=== PATIENT | female | born 1990 | race Caucasian/White ===

== ENCOUNTER → 2016-12-24 | Outpatient (CLI) | payer OTHER ==
--- NOTE | 2016-12-24 13:50 | MAMMOGRAPHY REPORT ---
ULTRASOUND OF RIGHT BREAST: 12/24/2016 CLINICAL HISTORY: 26-year-old woman presents after her provider felt a lump in the 1:00 right breast. No skin changes or nipple discharge. No family history of breast cancer. COMPARISON: No prior exams were available for comparison. FINDINGS: Real-time high-resolution ultrasound was performed in the area of palpable lump pointed out by the patient (1:00 periareolar right breast). In the area of palpable lump, there is a parallel h ypoechoic solid lobulated and circumscribed mass measuring 13.6 x 9.0 x 17.6 mm. Although this most likely represents a fibroadenoma, definitive characterization with an ultrasound guided core biopsy i s recommended to exclude the possibility of phyllodes. IMPRESSION: ACR BI-RADS CATEGORY 4A: LOW SUSPICION FOR MALIGNANCY - FOLLOW-UP RECOMMENDED The palpable lump in the 1:00 periareolar right breast correlates with a benign-appearing solid mass measuring 17.6 mm. Definitive characterization with an ultrasound-guided core needle biopsy is recom mended. These results and recommendations were discussed with the patient at the time of the exam. She tenta tively scheduled the biopsy prior to leaving our department. Princess Bal M.D. ay/:12/24/2016 08:23:59 Bicycle Mechanic: Dr. Princess Bal, [facility] letter sent: Abnormal 4/5 BI-RADS Code: ACR BI-RADS Category 4A: Low Suspicion For Malignancy
== END | disposition home or self-care (01) ==
LOC: C.MAMM 08:03
PROVIDERS: ATTEND Physician Assistant Medical
DX: N63 Unspecified lump in breast (principal)

== ENCOUNTER → 2016-12-25 | Outpatient (CLI) | payer OTHER ==
--- NOTE | 2016-12-25 09:02 | Discharge Instructions ---
Discharge Instructions Procedure Procedure Date: Dec 25, 2016. Reason for visit: Right Mass. Discharge Discharge Date: Dec 25, 2016. Discharge Diagnosis: status post breast biopsy Instructions Activity Recommendations: Additional Limitations (see below) Return to School/Work: no limitations Recommended Home Diet: No Limitations Provider Instructions: ACTIVITY RECOMMENDATIONS: * No lifting, pushing, pulling or exercising the affected side for three days. RETURN TO SCHOOL/WORK: * You may return to work/school after the procedure, but do not perform any strenuous activities for 24 to 48 hours. MEDICATIONS: * Tylenol (two 325 mg) every four to six hours if needed for mild pain (if not allergic to Tylenol). DIET: * Resume previous diet. SPECIAL CARE INSTRUCTIONS: * Keep biopsy site dry for 24 hours. May shower after 24 hours, but do not soak (bathe) incision. * May remove Tegaderm (plastic patch) tomorrow AFTER showering. * Leave the steri-strips on for one week. Allow the steri-strips to fall off by themselves. If not off after one week, you may remove them. You may place a Bandaid crosswise over the strips, if desired. * Apply ice 10 minutes on and 10 minutes off as needed. * Wear a bra at bedtime to sleep more comfortably for 2-3 days. * Your referring physician should have the results after approximately 5 to 7 business days. * Call for unusual bleeding, fever, drainage, etc or if you have any questions call during normal business hours or after hours call Dr Moran, . FOLLOW UP VISIT: Follow-up with Referring Physician as scheduled. Allergies Coded Allergies: Penicillins (Verified Allergy, Unknown, UNKNOWN, 02/06/16) Mikhail Varghese Recommendations: Call your doctor if: * Temperature above 101 degrees * Pain not relieved by pain medicine ordered * There is increased drainage or redness from any incision * You have any unanswered questions or concerns. Your Doctors Instructions noted above were prepared by provider Jane Moran. Patient Signature Section: Patient Instructions Signature Page Sue Belén Patient (or Guardian) Signature/Date: I have read and understand the instructions given to me by my caregivers. Caregiver/RN/Doctor Signature/Date: The above-named patient and/or guardian has received patient instructions on this date. + Original Patient Signature Page (only) stays with chart. Please make copy for patient.
--- NOTE | 2016-12-25 12:44 | MAMMOGRAPHY REPORT ---
ULTRASOUND GUIDED BIOPSY RIGHT BREAST: 12/25/2016 CLINICAL HISTORY: Right 1:00 breast mass. PATIENT CONSENT: The procedure, risks and benefits were discussed with the patient and informed writt en consent was obtained. A timeout was performed immediately prior to the procedure. PROCEDURE DESCRIPTION: With ultrasound guidance, aseptic technique, and lidocaine as the local anesth etic (1% lidocaine to anesthetize the skin and 1% lidocaine with epinephrine to anesthetize the deepe r tissues), the mass of concern in the right 1:00 breast was sampled 4 times with a 14-gauge Achieve biopsy needle. Immediately thereafter, with ultrasound guidance, aseptic technique, and lidocaine as the local anesthetic, a metallic localizer clip was placed in the mass. Direct pressure was applied to the site immediately post procedure and hemostasis was achieved. The patient tolerated the procedu re without complication. She was given wound care instructions. The specimens were sent to pathology for analysis. COMPARISON: Comparison is made to exam dated: 12/24/2016 ultrasound - [facility]. IMPRESSION: ULTRASOUND GUIDED BIOPSY Ultrasound guided core needle biopsy of the right 1:00 breast mass, with clip placement. The patient will receive pathology results from her referring provider. Jane Moran M.D. /:12/25/2016 09:03:42 Clinical Account Executive: Marilyn Rothman, [facility]
== END | disposition home or self-care (01) ==
LOC: C.MAMM 08:20
PROVIDERS: ATTEND Physician Assistant Medical
DX: N63 Unspecified lump in breast (principal); D24.1 Benign neoplasm of right breast

== ENCOUNTER → 2017-07-24 | Outpatient (CLI) | payer OTHER ==
--- NOTE | 2017-07-24 15:39 | MAMMOGRAPHY REPORT ---
ULTRASOUND OF RIGHT BREAST: 07/24/2017 CLINICAL HISTORY: The patient reports intermittent diffuse right breast pain for a few weeks, which i s now improving. History of biopsy of a right 1:00 breast mass in December 2016 which yielded a shanthi ign fibroadenoma. She denies any new palpable lumps or other complaints. COMPARISON: Comparison is made to exams dated: 12/25/2016 ultrasound biopsy and 12/24/2016 ultrasound - [facility]. TECHNIQUE: Real-time ultrasound of the right breast was performed. FINDINGS: Real-time, high-resolution ultrasound was performed of the right breast including all [address] and subareolar regions to evaluate diffuse right breast pain. In the right breast at 1:00, 1 cm from the nipple, again noted is a circumscribed hypoechoic solid mass which measures 15 x 10 x 16 mm. The mass is not significantly changed compared to the prior exam and was previous the biopsied a nd yielded a fibroadenoma. In the right breast at 7:00, 3 cm from the nipple, there is another simil ar-appearing hypoechoic solid circumscribed mass which measures 7 x 6 x 8 mm. This is probably benig n and likely represents another fibroadenoma. The remainder of the right breast demonstrates no susp icious masses or other suspicious sonographic abnormalities. IMPRESSION: ACR-BI-RADS CATEGORY 3: PROBABLY BENIGN - FOLLOW-UP RECOMMENDED 1. No suspicious sonographic abnormality to explain diffuse intermittent right breast pain. Recommen d clinical follow-up. 2. Stable 16 mm hypoechoic mass in the right 1:00 breast, which was previously biopsied and yielded a benign fibroadenoma. Another similar-appearing smaller hypoechoic 8 mm mass is seen within the rig ht breast at 7:00, which is probably benign and likely also represents a fibroadenoma. Recommend fol low-up targeted ultrasound of the right breast in 6 months to confirm stability of the 7:00 breast ma ss. The patient was verbally notified of the results. She reports that she may be moving to [place] in Jan and I informed her that she could have the follow-up ultrasound in [place]. Jane Moran M.D. /:07/24/2017 09:53:37 [employer] Direction Specialist: Randee LARA(Jim)(Pawan), [facility] letter sent: Follow Up Recommended 3 BI-RADS Code: ACR-BI-RADS Category 3: Probably Benign
== END | disposition home or self-care (01) ==
LOC: C.MAMM 09:05
PROVIDERS: ATTEND Physician Assistant Medical
DX: N64.4 Mastodynia (principal); D24.1 Benign neoplasm of right breast; N63.10 Unspecified lump in the right breast, unspecified quadrant

== ENCOUNTER 2019-01-22 02:20 | Inpatient (IN) ==
[2019-01-22] MEDS ORDERED: OXYTOCIN 30 UNITS/500 ML BAG IV PRN ×3 (05:44→15:32)
--- NOTE | 2019-01-22 05:47 | History & Physical Report ---
Date of Service January 22, 2019 Assessment & Plan (1) : Patient has made cervical change since exam 2 days ago, has regular contractions. She would like epidural. She is agreeable to pitocin if this is indicated. History of Present Illness Chief Complaint: labor Primary Care Provider: NO PCP Patient is a 28-year-old G1, P0 at 39 weeks 0 days who presented with contractions. She states the contractions have been going on since yesterday, and have been getting close together and stronger. No leaking of fluid, no vaginal bleeding. Positive movement. complicated by fibroadenoma of the breast. My last exam in the office on 01/20/2019 was 1/80/-2. Allergies Allergy/AdvReac Type Severity Reaction Status Date / Time Iodinated Contrast Media Allergy Intermediate Rash Verified 01/22/19 04:39 Penicillins Allergy Unknown UNKNOWN Verified 01/20/19 13:32 Home Medications Home Medications Medication Instructions Recorded Confirmed Type OBI-hsjw-GE-omega 3-fat com #1 27 1 cap PO DAILY cap 11/15/18 01/22/19 History mg-1 mg-300 mg capsule Patient History Medical History Fibroadenoma of both breasts History of varicella Surgical History H/O parotidectomy Family History Grandmother (Paternal) Cardiac disorder Hypertension Hypercholesterolemia Grandfather (Paternal) Diabetes Father Hypertension Other FH: deafness or hearing loss Social History Preferred Language: Czech Communication Ability: Effective Planning Engineer Required: No Beliefs That Will Affect Care: None marital status: Current Living Situation: Spouse Other Information That Helps Us Care for You: No Feels Safe at Home: Yes Safety Concerns: Feels Safe At This Time Smoking Status: Never smoker Hx Alcohol Use: No Hx Substance Use: No Review of Systems All systems reviewed & are unremarkable except as noted in HPI & below Physical Exam Constitutional: WD/WN, vitals as above Respiratory: normal respiratory effort, lungs clear to auscultation no respiratory distress Cardiovascular: Rate/Rhythm: regular rate and regular rhythm Gastrointestinal (Abdomen): Inspection/Auscultation: abdomen normal to inspection Percussion/Palpation: abdomen soft; abdomen nontender Gravid. No s/s chorio or abruption. Skin: no rashes, warm and dry Psychiatric: A+Ox3, euthymic affect Results & Data Vital Signs (Past 12 Hours) Vital Signs Temp Pulse Resp BP 01/22/19 02:43 36.8 C 18 01/22/19 02:31 70 108/61
[2019-01-22] MEDS: LACTATED RINGER'S 1,000 ML IV PRN ×2 (06:00→06:57)
[2019-01-22 06:05] LABS: Hemoglobin 12.4 g/dL (12.0-16.0); Mean Corpuscular Hemoglobin 33.8 pg (25-34); Mean Corpuscular Volume 98.1 fL (80-100); Mean Platelet Volume 11.7 fL (7.4-10.4); Platelet Count 157 K/uL (130-400); RDW Coefficient of Variation 13.1 % (11.5-14.5); RDW Standard Deviation 46.5 fL (36.4-46.3); Red Blood Count 3.67 M/uL (4.2-5.4); White Blood Count 12.85 K/uL (4.8-10.8)
[2019-01-22] MEDS ORDERED: BUPIVACAINE 0.25% 30 ML VIAL ONE (06:15)
[2019-01-22] MEDS ORDERED: fentaNYL citrate 100 MCG/2 ML VIAL ONE (06:15)
[2019-01-22] MEDS ORDERED: ePHEDrine sulfate 50 MG/ML AMP ONE (06:15)
[2019-01-22] MEDS ORDERED: fentaNYL 2MCG/ML ROPIV 1.25MG/ML 100 ML BAG EPI ONE (06:16)
[2019-01-22 06:18] LABS: Mean Corpuscular Hgb Conc 34.4 g/dL (32-36)
--- NOTE | 2019-01-22 07:37 | Anesthesiology Consultation ---
Date of Service January 22, 2019 Assessment & Plan (1) Encounter for pre-operative examination: Chart Review Chart Review: Patient NOT seen in Pre Admission Testing and Acceptable Risk for Labor Epidural Consults Requested none ASA ASA2 Proposed Anesthesia Anesthesia Type: Labor Epidural Risk / Benefits Reviewed With: PT / POA / Parent / Guardian, Accepts Plan and Informed Consent Obtained History Height/Weight Height: 5 ft 7.72 in Weight: 58.967 kg Allergies Allergy/AdvReac Type Severity Reaction Status Date / Time Iodinated Contrast Media Allergy Intermediate Rash Verified 01/22/19 04:39 Medications Home Medications Medication Instructions Recorded Confirmed Last Taken ZDV-uirx-MX-omega 3-fat com #1 27 1 cap PO DAILY cap 11/15/18 01/22/19 01/21/19 14:00 mg-1 mg-300 mg capsule Active Medications Generic Name Dose Route Start Last Admin Trade Name Freq PRN Reason Stop Dose Admin Lactated Ringer's 1,000 mls @ 125 mls/hr 01/22/19 05:44 01/22/19 06:57 Lr IV 01/24/19 05:43 125 mls/hr .Q8H PRN Administration L&D Protocol Protocol NPO Date Last Intake of Fluids: 01/22/19 Time Last Intake of Fluids: 07:41 Date Last Intake of Solids: 01/22/19 Time Last Intake of Solids: 05:30 Past Medical History Medical History Fibroadenoma of both breasts History of varicella Exercise / Class Metabolic Activity II 4-5 Yardwork/Stairs/Walk up hill Negative for chest pain or shortness of breath. Past Family History Family History Grandmother (Paternal) Cardiac disorder Hypertension Hypercholesterolemia Grandfather (Paternal) Diabetes Father Hypertension Other FH: deafness or hearing loss Past Surgical History Surgical History H/O parotidectomy Past Anesthesia History No Hx of Anesthesia Complications History of PONV No Hx of PONV and No Hx of Motion Sickness Social History Smoking Status: Never smoker Hx Alcohol Use: No Hx Substance Use: No Review of Systems Patient denies active symptoms of GERD. Patient denies numbness, tingling or weakness in lower extremities. Patient denies history of abnormal bleeding or bleeding disorder. Patient denies active use of anticoagulants other than low dose aspirin. Physical Exam Vital Signs Last Vital Signs Temp 36.8 C 01/22/19 02:43 Pulse 70 01/22/19 02:31 Resp 18 01/22/19 02:43 BP 108/61 01/22/19 02:31 Constitutional not obese (Gravid uterus) ENMT Mouth: no TMJ abnormality and oral opening not small Thyromental Distance: > or= 3.5 Finger Breadths Mallampati Class: III Neck normal visual inspection; neck extension not limited Respiratory normal respiratory effort Auscultation: lungs clear to auscultation bilaterally Cardiovascular Rate/Rhythm: regular rate and regular rhythm Heart Sounds: no murmur Neurologic moves all extremities Motor/Sensory: no sensory deficit Psychiatric Orientation: alert and oriented x 3 Testing Laboratory Results 01/22/19 05:51
[2019-01-22] MEDS ORDERED: NALOXONE HCL 0.4 MG/1 ML VIAL/CARP IV PRN (07:51)
[2019-01-22] MEDS ORDERED: DiphenhydrAMINE HCL 50 MG/ML VIAL IV PRN (07:51)
[2019-01-22] MEDS ORDERED: fentaNYL 2MCG/ML ROPIV 1.25MG/ML 100 ML BAG EPI PRN (07:51)
[2019-01-22] MEDS ORDERED: NALBUPHINE HCL INJ 10 MG/ML AMP IV PRN (07:51)
[2019-01-22] MEDS ORDERED: ONDANSETRON INJ 2 MG/ML 2 ML VIAL IV PRN (07:51)
[2019-01-22] MEDS ORDERED: ePHEDrine sulfate 50 MG/ML AMP IV PRN (07:51)
[2019-01-22] MEDS ORDERED: NALOXONE HCL 1 MG in SODIUM CHLORIDE 0.9% 1000ML 1,000 ML IV PRN (07:51)
[2019-01-22] MEDS ORDERED: Nursing to Pharmacy Communication ONE (09:01)
--- NOTE | 2019-01-22 09:03 | Labor Progress Brief Note ---
Date of Service January 22, 2019 Subjective comfortable after epidural Assessment & Plan (1) Normal labor: plan pitocin augmentation. fetus reassuring. Physical Exam Constitutional: WD/WN, vitals as above Psychiatric: A+Ox3, euthymic affect Genitourinary: cx--deferred toco--spaced q6-8min efm--130s with mod variability, accels to 160s, no decels. Results & Data Vital Signs (Past 12 Hours) Vital Signs Temp Pulse Resp BP Pulse Ox 01/22/19 08:55 67 98 01/22/19 08:50 70 98 01/22/19 08:47 65 101/58 L 01/22/19 08:46 20 01/22/19 08:45 67 98 01/22/19 08:40 67 99 01/22/19 08:35 81 97 01/22/19 08:32 64 105/59 L 01/22/19 08:30 68 98 01/22/19 08:25 69 99 01/22/19 08:20 71 99 01/22/19 08:18 71 88/59 L 01/22/19 08:16 20 01/22/19 08:15 75 98 01/22/19 08:10 73 99 01/22/19 08:05 80 99 01/22/19 08:01 81 20 103/62 01/22/19 08:00 78 104/58 L 99 01/22/19 07:58 78 102/55 L 01/22/19 07:55 85 104/59 L 100 01/22/19 07:53 68 106/58 L 01/22/19 07:52 88 105/56 L 01/22/19 07:50 79 104/62 99 01/22/19 07:48 85 109/64 01/22/19 07:46 20 01/22/19 07:45 78 108/64 99 01/22/19 07:43 73 112/66 01/22/19 07:41 72 106/65 01/22/19 07:40 85 99 01/22/19 07:37 36.9 C 80 20 105/59 L 01/22/19 07:35 80 98 01/22/19 07:30 82 20 99 01/22/19 07:27 80 114/63 01/22/19 07:26 87 94 01/22/19 07:25 83 98 01/22/19 07:20 73 100 01/22/19 07:15 83 97 01/22/19 07:10 72 98 01/22/19 07:05 70 100 01/22/19 07:00 80 100 01/22/19 06:55 80 100 01/22/19 06:49 36.8 C 71 18 108/65 01/22/19 02:43 36.8 C 18 01/22/19 02:31 70 108/61
--- NOTE | 2019-01-22 11:55 | Labor Progress Brief Note ---
Date of Service January 22, 2019 Subjective comfortable Assessment & Plan (1) Normal labor: fetus category one. continue current managment. anticipate . Physical Exam Constitutional: WD/WN, vitals as above Psychiatric: A+Ox3, euthymic affect Genitourinary: cx--8/100/0 toco--q3-4min, pit at 6 efm--135 with mod variabiliy, accels to 160s, no decels Results & Data Vital Signs (Past 12 Hours) Vital Signs Temp Pulse Resp BP Pulse Ox 01/22/19 11:50 76 97 01/22/19 11:47 74 93/52 L 01/22/19 11:45 83 97 01/22/19 11:40 74 97 01/22/19 11:35 74 98 01/22/19 11:32 75 99/57 L 01/22/19 11:30 83 98 01/22/19 11:25 84 97 01/22/19 11:20 73 97 01/22/19 11:18 81 110/53 L 01/22/19 11:16 16 01/22/19 11:15 73 96 01/22/19 11:10 68 97 01/22/19 11:05 69 98 01/22/19 11:02 68 106/58 L 01/22/19 11:00 73 97 01/22/19 10:55 80 97 01/22/19 10:50 75 97 01/22/19 10:48 69 114/61 01/22/19 10:46 20 01/22/19 10:45 78 98 01/22/19 10:40 75 97 01/22/19 10:35 72 97 01/22/19 10:32 67 104/60 01/22/19 10:31 20 01/22/19 10:30 73 97 01/22/19 10:25 73 99 01/22/19 10:20 76 98 01/22/19 10:18 67 106/63 01/22/19 10:16 20 01/22/19 10:15 72 99 01/22/19 10:10 73 99 01/22/19 10:05 71 98 01/22/19 10:02 68 104/66 01/22/19 10:01 20 01/22/19 10:00 71 98 01/22/19 09:55 79 98 01/22/19 09:50 71 96 01/22/19 09:47 67 102/57 L 01/22/19 09:46 20 01/22/19 09:45 66 98 01/22/19 09:40 66 98 01/22/19 09:35 69 99 01/22/19 09:32 70 101/56 L 01/22/19 09:31 20 01/22/19 09:30 69 99 01/22/19 09:25 71 99 01/22/19 09:20 64 98 01/22/19 09:19 66 100/57 L 01/22/19 09:16 20 01/22/19 09:15 67 99 01/22/19 09:10 67 100 01/22/19 09:05 76 99 01/22/19 09:02 65 100/57 L 01/22/19 09:01 36.9 C 20 01/22/19 09:00 71 99 01/22/19 08:55 67 98 01/22/19 08:50 70 98 01/22/19 08:47 65 101/58 L 01/22/19 08:46 20 01/22/19 08:45 67 98 01/22/19 08:40 67 99 01/22/19 08:35 81 97 01/22/19 08:32 64 105/59 L 01/22/19 08:30 68 98 01/22/19 08:25 69 99 01/22/19 08:20 71 99 01/22/19 08:18 71 88/59 L 01/22/19 08:16 20 01/22/19 08:15 75 98 01/22/19 08:10 73 99 01/22/19 08:05 80 99 01/22/19 08:01 81 20 103/62 01/22/19 08:00 78 104/58 L 99 01/22/19 07:58 78 102/55 L 01/22/19 07:55 85 104/59 L 100 01/22/19 07:53 68 106/58 L 01/22/19 07:52 88 105/56 L 01/22/19 07:50 79 104/62 99 01/22/19 07:48 85 109/64 01/22/19 07:46 20 01/22/19 07:45 78 108/64 99 01/22/19 07:43 73 112/66 01/22/19 07:41 72 106/65 01/22/19 07:40 85 99 01/22/19 07:37 36.9 C 80 20 105/59 L 01/22/19 07:35 80 98 01/22/19 07:30 82 20 99 01/22/19 07:27 80 114/63 01/22/19 07:26 87 94 01/22/19 07:25 83 98 01/22/19 07:20 73 100 01/22/19 07:15 83 97 01/22/19 07:10 72 98 01/22/19 07:05 70 100 01/22/19 07:00 80 100 01/22/19 06:55 80 100 01/22/19 06:49 36.8 C 71 18 108/65 01/22/19 02:43 36.8 C 18 01/22/19 02:31 70 108/61
[2019-01-22] MEDS ORDERED: OXYCODONE/ACETAMINOPHEN 5mg/325mg TAB PO PRN (15:23)
--- NOTE | 2019-01-22 15:27 | Delivery Summary ---
Vaginal Delivery Summary Date of Service January 22, 2019 Vaginal Delivery Summary Pre-operative Diagnosis: at 39 weeks active labor Post-operative Diagnosis: same Procedure: epidural arom small vaginal laceration with repair EBL: 400cc Anesthesia: epidural Procedure: The patient pushed for about one hour to deliver a viable male in joon position. The nose and mouth were bulb suctioned on the perineum and the rest of the infant was then delivered without difficulty. The baby was vigorous. The nose and mouth were again bulb suctioned and the was placed in the maternal abdomen for drying and attention. Cord was clamped and cut at one minute of life. Cord blood and segment obtained. Placenta delivered spontaneous, intact with a three vessel cord. Cervix/sulci/rectum were intact. A small vaginal laceration was repaired in the normal standard fashion. Hemostasis obtained with dilute pitocin and fundal massage. Apgars were 8/9. Mother and baby doing well at the end of the delivery. [facility] [place] Vaginal Delivery Charge Vaginal Delivery Codes: 05389 global code for the antepartum, delivery, and post-
[2019-01-22] MEDS ORDERED: bisacodyL 10 MG SUPP PR PRN (15:32)
[2019-01-22] MEDS ORDERED: DIPHTHERIA/TETANUS/PERTUSSIS 0.5 ML SYR/VIAL IM ONE (15:32)
[2019-01-22] MEDS ORDERED: HYDROCORTISONE ACETATE 25 MG SUPP PR PRN (15:32)
--- NOTE | 2019-01-22 16:03 | Anesthesia Procedure Note ---
Date of Service January 22, 2019 Anesthesia Post Epidural Note Vital Signs Vital Signs: Temp Pulse Resp BP Pulse Ox 98.6 F 70 20 108/64 97 01/22/19 14:19 01/22/19 15:47 01/22/19 14:19 01/22/19 15:47 01/22/19 14:55 Notes Mental Status: alert / awake / arousable and participated in evaluation Nausea / Vomiting: adequately controlled Pain: adequately controlled Airway Patency, RR, SpO2: stable & adequate BP & HR: stable & adequate Hydration State: stable & adequate Neuraxial Anesthesia: was administered and sensory block is resolving Anesthetic Complications: no major complications apparent and Pt Satisfied with anesthetic care Epidural: Removed without complications and With tip intact
[2019-01-22] MEDS: IBUPROFEN 600 MG TAB PO PRN ×2 (17:55→23:54)
[2019-01-22] MEDS: BENZOCAINE 20% AER SPR 82.5 GM CAN EXT PRN (18:46)
[2019-01-22] MEDS: SUPERCREAM 0.870% 15 GM JAR EXT PRN (18:46)
[2019-01-22] MEDS: DOCUSATE SODIUM 100 MG CAP PO SCH (20:06)
[2019-01-23] MEDS: IBUPROFEN 600 MG TAB PO PRN ×5 (03:36→23:57)
[2019-01-23 06:37] LABS: Hematocrit (blood only) 31.7 % (37-47)
[2019-01-23] MEDS: DOCUSATE SODIUM 100 MG CAP PO SCH ×2 (08:45→20:20)
[2019-01-23] MEDS: PRENATAL VITAMIN 1 TAB PO SCH (08:45)
--- NOTE | 2019-01-23 08:56 | Obstetrical Progress Note ---
Date of Service January 23, 2019 Assessment & Plan (1) Status post vaginal delivery: Doing well. Routine care. Day #:: 1 Subjective Ambulation: ambulating normally Voiding: no voiding problems Passing Gas:: Yes Diet Tolerance:: regular diet Lochia:: Small Feeding Type:: breast feeding c/o her bottom being sore Physical Exam Constitutional WD/WN, vitals as above Gastrointestinal (Abdomen) soft, nd, nd fundus firm, nt at u Psychiatric A+Ox3, euthymic affect Results & Data Vital Signs (Past 12 Hours) Vital Signs Temp Pulse Resp BP Pulse Ox 01/23/19 07:35 36.5 C 70 16 104/67 97 01/23/19 03:05 36.4 C L 73 18 93/54 L 01/22/19 23:35 36.6 C 62 18 101/62
[2019-01-23] MEDS: ACETAMINOPHEN 325 MG TAB PO PRN ×2 (11:42→17:22)
[2019-01-23] MEDS ORDERED: bisacodyL 5 MG TABEC PO SCH (20:00)
[2019-01-24] MEDS: ACETAMINOPHEN 325 MG TAB PO PRN ×2 (03:04→09:06)
[2019-01-24] MEDS: IBUPROFEN 600 MG TAB PO PRN ×3 (05:56→20:32)
[2019-01-24] MEDS: SUPERCREAM 0.870% 15 GM JAR EXT PRN (06:02)
--- NOTE | 2019-01-24 06:03 | Obstetrical Progress Note ---
Date of Service January 24, 2019 Assessment & Plan (1) Status post vaginal delivery: 28 y/o s/p @ 39 weeks w/ small tear -PPD# 2 - GBS negative , Blood Type O+ - Feels well today. Eating well, voiding well, ambulating well. - Pain well controlled. - Routine post care - After discharge will have [address] Manzanares. Supervising Physician Co-Signing Physician Notes Resident Physician Supervision Note: I interviewed and examined the patient. Discussed with Dr. Reno and agree with findings and plan as documented in the note. Any exceptions or clarifications are listed here: Doing well. Desires d/c. Instructions given. Documented By: Dahlia Manzanares MD, FACOG Subjective Doing well this morning, she wanted to know if she had a tear in her abdomen and how long until her abdomen would return to its normal size. She had no other concerns this morning. Review of Systems Review of Systems: Denies fever, chills, sweats Denies shortness of breath, difficulty breathing, chest pain, palpitations, chest pressure. Denies breast pain. Denies dysuria. Denies headache. Physical Exam Physical Exam: OB PE General: Alert, oriented. No acute distress. Cardiac: Regular rate and rhythm, no murmurs/rubs/gallops. Respiratory: Clear to auscultation anterior and posteriorly, no wheezes/rales/rhonchi. No increased work of breathing. Symmetrical chest rise. No respiratory distress. Abdomen: Soft, nontender, nondistended. Bowel sounds present. Uterus: Uterine fundus firm, palpable at the umbilicus. Lower Extremities: No lower extremity edema or swelling. No deep calf pain. Carin's negative bilaterally. Results & Data Vital Signs (Past 12 Hours) Vital Signs Temp Pulse Resp BP Pulse Ox 01/24/19 00:05 36.6 C 67 16 106/68 98 01/23/19 20:10 36.6 C 80 16 96/59 L 98 PG Care Time/CCT Total # of Minutes Spent Total Time Spent with Patient: Total time spent is greater than 50% in coordination of care (as documented) at patient's floor/unit and/or counseling patient: Resident Activity Tracking Resident Involvement: Resident Care Provided Care Provided: Adult [facility]
[2019-01-24] MEDS: DOCUSATE SODIUM 100 MG CAP PO SCH ×2 (09:06→20:33)
[2019-01-24] MEDS: PRENATAL VITAMIN 1 TAB PO SCH (09:07)
[2019-01-24] MEDS: BENZOCAINE 20% AER SPR 82.5 GM CAN EXT PRN (22:32)
== END 2019-01-24 23:40 | disposition home or self-care (01) | DRG 807 ==
LOC: OPB 02:20 → 4S1 02:23 → 4S2 18:24